=== PATIENT | female | born 1960 | race Caucasian/White ===

== ENCOUNTER → 2018-03-08 | Outpatient (CLI) | payer OTHER ==
--- NOTE | 2018-03-08 10:38 | RAD ---
EXAM: Lumbar spine, 3 views HISTORY: Pain. COMPARISON: None. FINDINGS: 3 views lumbar spine are obtained. There is no significant listhesis. There is minimal endplate remodeling at multiple levels. There is facet arthropathy at the lower lumbar levels. IMPRESSION: Minimal to mild degenerative change involving the lumbar spine. No acute osseous finding. Electronically signed by: Corinna Farooq MD (03/08/2018 10:33 AM) [id number]
== END | disposition home or self-care (01) ==
LOC: RAD 09:45
PROVIDERS: ATTEND Surgery
DX: M47.896 Other spondylosis, lumbar region (principal); M12.88 Other specific arthropathies, not elsewhere classified, other specified site
CPT/HCPCS: 72100